=== PATIENT | female | born 1985 | race Caucasian/White ===

== ENCOUNTER 2024-12-28 14:19 | Emergency (ER) | payer SELFPAY ==
--- OUTSIDE RECORDS SUMMARY | 2014-04-30 09:30 | XMS_ITS | Continuity of Care Document ---
Author Organization [facility] Address [address] [place] [address] Phone Care Team Providers Care Can Piler Name Role Phone Shivani berry DDS Unavailable Unavailable Procedures Procedure Date Extraction, Erupted Tooth Or Exposed Giovanna t (Elevati Panoramic Film Limited Evaluation Advance Directives Directive Yes / No Effective Date File Name No Information Encounters Encounter Description Practice Location Reason(s) For Visit Diagnoses Date Provider Providers Copied on Encounter [facility], [address] [place], [id number], [place] tel:[phone] examination 4 Nickieemigdio Parrish. [address] [place] [place], [id number], [place]. tel:[phone] Family History Family Member Type Diagnosis Age At Onset No Information Payers Payer name Insurance type Covered alliance party ID Authoriza tion(s) No Information Social History Type Description Quantity Date Captured Comments Sex Female Smoking Status No Information Chief Complaint And Reason For Visit No Information Reason For Referral Reason For Referral No Information History Of Present Illness Encounter Date Complaint History Of Prese nt Illness No Information Functional Status Date Functional Assessmen t No Information Instructions Date Instruction Additional Infor mation No Information Assessments Type Assessment Date No Information Patient Care Teams Name Effective Dates (start - stop) Status Members No Information
--- OUTSIDE RECORDS SUMMARY | 2022-08-03 10:27 | XMS_ITS | Continuity of Care Document ---
Author Organization [facility] Address [address] [place] [address] Phone Care Team Providers Care Business Banking Relationship Manager Name Role Phone MarjorieLeslie licona LCSW Unavailable Unavailable Procedures Procedure Date Limited Evaluation Intraoral Periapical First Film 017 Local Anesthesia Extraction, Erupted Tooth Or Exposed Giovanna t (Elevati Follow Up Intraoral Periapical First Film 017 Limited Evaluation Bitewing Single Film Intraoral Periapical First Film 017 Extraction, Erupted Tooth Or Exposed Giovanna t (Elevati Local Anesthesia Tx Comp Advance Directives Directive Yes / No Effective Date File Name No Information Encounters Encounter Description Practice Location Reason(s) For Visit Diagnoses Date Provider Providers Copied on Encounter [facility], [address] [place], [id number], [place] tel:[phone] [facility] No Information 3 Marjorie Leslie. [address] [place], [id number], [place]. tel:[phone] [facility], [address] [place], [id number], [place] tel:[phone] [facility] Encounter for dental exam and cleaning w/o abnormal findings Sep- 7 Meche Whipple. [address], [id number] , [place], [id number], [place]. tel:[phone] [facility], [address] [place], [place], [id number], [place] tel:[phone] [facility] Encounter for dental exam and cleaning w/o abnormal findings Sep- 7 Fco Mehta. [address], [id number] [place], [id number], [place]. tel:[phone] [facility], [address], [place], [id number], [place] tel:[phone] [facility] Encounter for dental exam and cleaning w/o abnormal findings Sep- 7 Fco Mehta. [address], [id number] [place], [id number], [place]. tel:[phone] Family History Family Member Type Diagnosis Age At Onset No Information Payers Payer name Insurance type Covered libertarian ID Authoriza tion(s) No Information Social History Type Description Quantity Date Captured Comments Alcohol Use Details Unknown Caffeine Use Details Unknown Tobacco Use Status No Information Smoking Status No Information Sex Female Sexual Orientation Straight or heterosexual Gender Identity Female Chief Complaint And Reason For Visit No Information Reason For Referral Reason For Referral No Information Plan Of Treatment Date Type Action Status Goal Influenza vaccine. Due on due Goal Pap/HPV testing. Due on due Goal Depression screening. Due on due Goal Diabetes screening. Due on due Goal HPV, high+low-risk. Due on due Goal Tdap. Due on due Goal Td vaccine. Due on due Goal HPV. Due on due History Of Present Illness Encounter Date Complaint History Of Prese nt Illness No Information Functional Status Date Functional Assessmen t No Information Instructions Date Instruction Additional Infor mation No Information Assessments Type Assessment Date No Information Patient Care Teams Name Effective Dates (start - stop) Status Members No Information
[2024-12-28 14:32] VITALS: BP 127/78; PULSE 81; RESP 16; TEMP 36.3; O2SAT 98; BMI 36.5
[2024-12-28 15:43] LABS: Hematocrit 40.4 % (36-47); Hemoglobin 14.00 g/dL (11.27-16.99); Mean Corpuscular HGB Conc 34.7 g/dL (30-55); Mean Corpuscular Hemoglobin 31.1 pg (27-33); Mean Corpuscular Volume 89.8 fl (85-98); Nucleated Red Blood Cells % 0 %; Platelet Count 242 10^3/cmm (157-399); Red Blood Count 4.50 10^6/uL (3.85-5.65); White Blood Count 6.55 10^3/uL (3.29-11.43)
[2024-12-28 16:01] LABS: Alanine Aminotransferase 13 U/L (0-33); Albumin Level 4.3 g/dL (3.5-5.2); Alkaline Phosphatase 70 U/L (35-105); Anion Gap 13.8 (5-19); Aspartate Amino Transferase 12 U/L (0-32); Blood Urea Nitrogen 12 mg/dL (6-20); Calcium 9.2 mg/dL (8.5-10.5); Carbon Dioxide 24 mmol/L (22-29); Chloride 104 mmol/L (98-107); Creatinine Clr Calc Pharmacy 138.1099; Globulin 3.2 g/dL (1.3-4.6); Glucose 86 mg/dL (65-115); Osmolality Calculated 285 mOsm/kg (285-295); Potassium 3.8 mmol/L (3.5-5.1); Sodium 138 mmol/L (136-145); Total Protein 7.5 g/dL (6.6-8.7)
--- NOTE | 2024-12-28 16:04 | ED_ITS ---
HPI - Skin/Abscess/Foreign Bdy 2 General: Chief complaint: Skin/Abscess/Foreign Body Stated complaint: Rash on back & Blistering History of Present Illness: Patient is 39-year-old female without prior medical issues that reports to ED with itching, redness to upper back. This occurred 8 days ago, 2 days after floating. She has continued to go to the patel and flow. It has been a high heat index/advisory, and she states this cools her off. At times when she is hot it is itching. It feels like the top portion of her skin has been removed and the red area is just underneath. She does utilize sunblock. She states that she has not had a burn in this area and it does not hurt as a burn. No fevers. Associated symptoms: Deny chills, fever(s), nausea or vomiting Related Data Previous Rx's ?Medication ?Instructions ?Recorded clobetasol 0.05 % topical ointment 1 applic topical BI D 2 weeks #60 12/28/24 grams methylprednisolone 4 mg tablets in See Rx Instructions PO .COMPLEX 12/28/24 a dose pack (Medrol (Gus)) #21 ea Allergies Allergy/AdvReac Type Severity Reaction Status Date / Time morphine Allergy ADR-Chest Verified 12/28/24 14:39 Pain tramadol Allergy ALGY-Rash Verified 12/28/24 14:39 Review of Systems 2 General: Reports: 10 or more systems reviewed and unremarkable except in HPI and below Const: Denies: fever(s) or chills Eyes: Denies: change in vision or blurry vision ENMT: Denies: throat pain or mouth pain Card: Denies: chest pain or palpitations Resp: Denies: dyspnea or productive cough GI: Denies: abdominal pain, nausea or vomiting : Denies: flank pain or difficulty voiding Musc: Denies: neck pain or back pain Skin/Breast: Reports: rash, pruritus, erythema, sores and new lesions Neuro: Denies: headache(s) or numbness in extremities Physical Exam 2 Const: COMMON NORMALS: no acute distress, average body habitus and patient oriented x3 HENMT: COMMON NORMALS: normocephalic and atraumatic HEAD & SCALP: n ormocephalic and atraumatic Eye: COMMON NORMALS: Equal, round and reactive pupils present, EOMs intact bilaterally and conjunctivae normal CONJUNCTIVA: Yes conjunctivae normal P UPIL: Yes Equal, round and reactive pupils present Neck/C-Spine: COMMON NORMALS: full ROM, no lymphadenopathy and no JVD Chest: COMMONS NORMALS: normal inspection of the chest and normal palpation of entire chest wall Resp: COMMON NORMALS: normal respiratory effort and No retractions Cardio: COMMON NORMALS: no JVD, regular rate and regular rhythm RATE: r egular rate RHYTHM: regular rhythm GI: COMMON NORMALS: Normal to inspection, nondistended, normoactive bowel sounds present and Soft to palpation PALPATION: Yes Soft to palpation : COMMON NORMALS: Yes no CVA tenderness BLADDER/KIDNEY EXAM: Yes no CVA tenderness Back/Pelvis: COMMON NORMALS: no CVA tenderness Extremity: COMMON NORMALS: normal to inspection, full ROM and capillary refill normal Neuro: COMMON NORMALS: patient oriented x3 and CN's II-XII intact bilaterally Psych: COMMON NORMALS: mental status grossly normal, Normal thought process present and cooperative THOUGHT PROCESS: Normal thought process present Skin: SKIN IMAGES (FEMALE): 1. red, macular papular small, somewhat vesicular looking 2. red, macular papular small, somewhat vesicular looking Course 2 Vital Signs: Vital signs: Vital Signs Temperature 97.4 F L 12/28/24 14:32 Pulse Rate 81 12/28/24 14:32 Respiratory Rate 16 12/28/24 14:32 Blood Pressure 127/78 12/28/24 14:32 Pulse Oximetry 98 12/28/24 14:32 Oxygen Delivery Me thod Room Air 12/28/24 14:32 MDM - Skin/Abscess/Foreign Bdy Medicial Decision Making Patient is 39-year-old female that had 2 areas of her upper back, right and left consistent with contact dermatitis. This did not look like a plant dermatitis. Unknown what the issue was however related to her floating in the patel, when she first broke out, and the continued redness. She used a topical antibiotic ointment which helped her face, but not her posterior upper back portion. She was given dexamethasone 1 time here, and clobetasol was sent to the pharmacy. All of her questions answered and standing. Lab Data 12/28/24 15:19 12/28/24 15:19 Laboratory Results WBC 6.55 10^3/uL (3.29-11.43) 12/28/24 15:19 RBC 4.50 10^6/uL (3.85-5.65) 12/28/24 15:19 Hgb 14.00 g/dL (11.27-16.99) 12/28/24 15:19 Hct 40.4 % (36-47) 12/28/24 15:19 MCV 89.8 fl (85-98) 12/28/24 15:19 MCH 31.1 pg (27-33) 12/28/24 15:19 MCHC 34.7 g/dL (30-55) 12/28/24 15:19 RDW 11.9 % (12.1-15.1) L 12/28/24 15:19 Plt Count 242 10^3/cmm (157-399) 12/28/24 15:19 MPV 11.0 fL (7.4-10.4) H 12/28/24 15:19 Neut % (Auto) 55.4 % 12/28/24 15:19 Lymph % (Auto) 34.2 % 12/28/24 15:19 Ness % (Auto) 5.8 % 12/28/24 15:19 Eos % (Auto) 4.0 % 12/28/24 15:19 Baso % (Auto) 0.3 % 12/28/24 15:19 Neut # (Auto) 3.63 10^3/uL (1.8-7.7) 12/28/24 15:19 Lymph # (Auto) 2.2 10^3/uL (0.8-4.8) 12/28/24 15:19 Ness # (Auto) 0.4 10^3/uL (0.2-0.9) 12/28/24 15:19 Eos # (Auto) 0.3 10^3/uL (0.0-0.8) 12/28/24 15:19 Baso # (Auto) 0.0 10^3/uL (0.0-0.1) 12/28/24 15:19 Nucleated RBC % (auto) 0 % 12/28/24 15:19 Nucleated RBCs # 0.0 /100WBC 12/28/24 15:19 Sodium 138 mmol/L (136-145) 12/28/24 15:19 Potassium 3.8 mmol/L (3.5-5.1) 12/28/24 15:19 Chloride 104 mmol/L (98-107) 12/28/24 15:19 Carbon Dioxide 24 mmol/L (22-29) 12/28/24 15:19 Anion Gap 13.8 (5-19) 12/28/24 15:19 BUN 12 mg/dL (6-20) 12/28/24 15:19 Creatinine 0.6 mg/dL (0.5-0.9) 12/28/24 15:19 GFR Calculation 111.9 mL/min (90-130) 12/28/24 15:19 Glucose 86 mg/dL (65-115) 12/28/24 15:19 Calculated Osmolality 285 mOsm/kg (285-295) 12/28/24 15:19 Calcium 9.2 mg/dL (8.5-10.5) 12/28/24 15:19 Total Bilirubin 0.5 mg/dL (0.15-1.2) 12/28/24 15:19 AST 12 U/L (0-32) 12/28/24 15:19 ALT 13 U/L (0-33) 12/28/24 15:19 Alkaline Phosphatase 70 U/L (35-105) 12/28/24 15:19 Total Protein 7.5 g/dL (6.6-8.7) 12/28/24 15:19 Albumin 4.3 g/dL (3.5-5.2) 12/28/24 15:19 Globulin 3.2 g/dL (1.3-4.6) 12/28/24 15:19 No radiology studies performed this visit Discharge Plan Discharge Patient Disposition: Home Clinical Impression: Contact dermatitis Qualifiers: Contact dermatitis type: irritant Contact dermatitis trigger: unspecified trigger Qualified Code(s): L24.9 - Irritant contact dermatitis, unspecified cause Condition: Stable Prescriptions: New clobetasol 0.05 % ointment 1 applic topical BID 14 Days Qty: 60 0RF methylprednisolone [Medrol (Gus)] 4 mg tablets,dose pack See Rx Instructions .ROUTE .COMPLEX Qty: 21 0RF Rx Instructions: for 6 days Discharge Orders: Discharge ED (Routine); Ordered 12/28/24 Ordered By: Zoey Pandya Discharge Diet: Usual diet Discharge Activity: Resume usual activity Patient Instructions: Patient Portal & Ozzy Instructions Activity Restrictions/Additional Instructions: Apply cream just to upper back. Avoid face and genitals. Medrol Dosepak has been sent to the pharmacy as well. Follow instructions on the pack. Avoid contact with irritant if possible. Return for increasing redness, burning, stinging, weeping, draining, fever greater than 100.4 ?F. Print Language: [place] Coding Level of Care Code ED Medical Artist for Jorge Michelle
== END 2024-12-28 16:23 | disposition home or self-care (01) ==
PROVIDERS: Family Medicine; Emergency Provider Physician Assistant
DX: L24.9 Irritant contact dermatitis, unspecified cause (principal)
CPT/HCPCS: 36415; 80053; 85025; 96372; 99284; J1100